=== PATIENT | female | born 1955 | race Caucasian/White ===

== ENCOUNTER → 2017-08-20 | Outpatient (CLI) | payer BC ==
[2017-08-20 12:47] LABS: MEAN CORPUSCULAR HEMOGLOBIN 31.1 pg (27.0-33.0); MEAN CORPUSCULAR HGB CONC 32.7 g/dl (32.0-36.5); MEAN CORPUSCULAR VOLUME 95.2 fl (80.0-96.0); PLATELET COUNT, AUTOMATED 283 10^3/uL (150-450); RED CELL DISTRIBUTION WIDTH 13.2 % (11.5-14.5)
[2017-08-20 13:14] LABS: VITAMIN B12 LEVEL 281 PG/ML (247-911)
[2017-08-20 13:29] LABS: ALBUMIN 3.8 GM/DL (3.2-5.2); ALBUMIN/GLOBULIN RATIO 1.12 (1.00-1.93); ALKALINE PHOSPHATASE 69 U/L (45-117); ALT/SGPT 22 U/L (12-78); ANION GAP 6 MEQ/L (8-16); AST/SGOT 16 U/L (15-37); BILIRUBIN,TOTAL 0.4 MG/DL (0.2-1.0); BLOOD UREA NITROGEN 11 MG/DL (7-18); CALCIUM LEVEL 8.7 MG/DL (8.8-10.2); CARBON DIOXIDE LEVEL 29 MEQ/L (21-32); CHLORIDE LEVEL 104 MEQ/L (98-107); CREATININE FOR GFR 0.67 MG/DL (0.55-1.02); FERRITIN 38 NG/ML (8-252); GLOMERULAR FILTRATION RATE > 60.0 (>45); GLUCOSE, FASTING 87 MG/DL (80-110); MAGNESIUM LEVEL 2.4 MG/DL (1.8-2.4); PERCENT SATURATION 16.7 % (13.2-45.0); POTASSIUM SERUM 4.5 MEQ/L (3.5-5.1); SODIUM LEVEL 139 MEQ/L (136-145); TOTAL IRON BINDING CAPACITY 293 UG/DL (250-450); TOTAL PROTEIN 7.2 GM/DL (6.4-8.2)
== END ==
LOC: M LAB 11:58
PROVIDERS: ATTEND Internal Medicine Gastroenterology
DX: K44.9 Diaphragmatic hernia without obstruction or gangrene (principal)

== ENCOUNTER → 2017-11-14 | Outpatient (CLI) | payer BC ==
[2017-11-14 15:00] LABS: HEMATOCRIT 37.9 % (36.0-47.0); HEMOGLOBIN 12.5 g/dl (12.0-16.0); MEAN CORPUSCULAR HEMOGLOBIN 31.6 pg (27.0-33.0); MEAN CORPUSCULAR VOLUME 95.9 fl (80.0-96.0); PLATELET COUNT, AUTOMATED 247 10^3/uL (150-450); RED BLOOD COUNT 3.95 10^6/uL (4.00-5.40); RED CELL DISTRIBUTION WIDTH 14.2 % (11.5-14.5); WHITE BLOOD COUNT 3.9 10^3/uL (4.0-10.0)
[2017-11-14 15:32] LABS: ALBUMIN 4.2 GM/DL (3.2-5.2); ALBUMIN/GLOBULIN RATIO 1.17 (1.00-1.93); ALKALINE PHOSPHATASE 58 U/L (45-117); ALT/SGPT 15 U/L (12-78); ANION GAP 5 MEQ/L (8-16); AST/SGOT 12 U/L (7-37); BILIRUBIN,TOTAL 0.4 MG/DL (0.2-1.0); BLOOD UREA NITROGEN 16 MG/DL (7-18); C REACTIVE PROTEIN QUANTITATIV < 0.30 MG/DL (0.00-0.30); CALCIUM LEVEL 9.2 MG/DL (8.8-10.2); CARBON DIOXIDE LEVEL 30 MEQ/L (21-32); CHLORIDE LEVEL 103 MEQ/L (98-107); CREATININE FOR GFR 0.85 MG/DL (0.55-1.02); GLOMERULAR FILTRATION RATE > 60.0 (>45); GLUCOSE, FASTING 108 MG/DL (80-110); POTASSIUM SERUM 4.5 MEQ/L (3.5-5.1); SODIUM LEVEL 138 MEQ/L (136-145); TOTAL PROTEIN 7.8 GM/DL (6.4-8.2)
== END ==
LOC: M LAB 14:36
DX: K51.90 Ulcerative colitis, unspecified, without complications (principal)
CPT/HCPCS: 80053

== ENCOUNTER → 2017-12-13 | Outpatient (CLI) | payer BC ==
[2017-12-13 14:51] LABS: HEMOGLOBIN 12.6 g/dl (12.0-16.0); MEAN CORPUSCULAR HEMOGLOBIN 32.1 pg (27.0-33.0); MEAN CORPUSCULAR HGB CONC 33.2 g/dl (32.0-36.5); MEAN CORPUSCULAR VOLUME 96.7 fl (80.0-96.0); PLATELET COUNT, AUTOMATED 286 10^3/uL (150-450); RED BLOOD COUNT 3.93 10^6/uL (4.00-5.40); RED CELL DISTRIBUTION WIDTH 15.8 % (11.5-14.5); WHITE BLOOD COUNT 3.5 10^3/uL (4.0-10.0)
[2017-12-13 15:28] LABS: ALBUMIN 4.5 GM/DL (3.2-5.2); ALBUMIN/GLOBULIN RATIO 1.29 (1.00-1.93); ALKALINE PHOSPHATASE 70 U/L (45-117); ALT/SGPT 17 U/L (12-78); ANION GAP 7 MEQ/L (8-16); AST/SGOT 18 U/L (7-37); BILIRUBIN,TOTAL 0.5 MG/DL (0.2-1.0); BLOOD UREA NITROGEN 15 MG/DL (7-18); C REACTIVE PROTEIN QUANTITATIV < 0.30 MG/DL (0.00-0.30); CALCIUM LEVEL 9.2 MG/DL (8.8-10.2); CARBON DIOXIDE LEVEL 28 MEQ/L (21-32); CHLORIDE LEVEL 103 MEQ/L (98-107); CREATININE FOR GFR 0.68 MG/DL (0.55-1.30); GLOMERULAR FILTRATION RATE > 60.0 (>45); GLUCOSE, FASTING 87 MG/DL (70-100); MAGNESIUM LEVEL 2.5 MG/DL (1.8-2.4); POTASSIUM SERUM 4.2 MEQ/L (3.5-5.1); SODIUM LEVEL 138 MEQ/L (136-145)
[2017-12-13 15:29] LABS: TOTAL 25(OH) VITAMIN D 42.7 NG/ML (30.0-100.0)
[2017-12-17 00:06] LABS: ALDOLASE 6.1 U/L (3.3-10.3)
== END ==
LOC: M LAB 13:47
DX: K51.913 Ulcerative colitis, unspecified with fistula (principal); R53.83 Other fatigue

== ENCOUNTER → 2018-01-21 | Outpatient (CLI) | payer BC ==
[2018-01-21 10:45] LABS: HEMATOCRIT 37.6 % (36.0-47.0); HEMOGLOBIN 12.3 g/dl (12.0-16.0); MEAN CORPUSCULAR HEMOGLOBIN 32.1 pg (27.0-33.0); MEAN CORPUSCULAR HGB CONC 32.7 g/dl (32.0-36.5); MEAN CORPUSCULAR VOLUME 98.2 fl (80.0-96.0); PLATELET COUNT, AUTOMATED 188 10^3/uL (150-450); RED BLOOD COUNT 3.83 10^6/uL (4.00-5.40); RED CELL DISTRIBUTION WIDTH 14.6 % (11.5-14.5); WHITE BLOOD COUNT 4.4 10^3/uL (4.0-10.0)
[2018-01-21 10:59] LABS: RHEUMATOID FACTOR QUANT < 10.0 IU/ML (<15.0)
[2018-01-21 10:59] LABS: C REACTIVE PROTEIN QUANTITATIV < 0.30 MG/DL (0.00-0.30)
[2018-01-22 14:14] LABS: ANTINUCLEAR ANTIBODIES DIRECT Negative (Negative)
== END ==
LOC: M LAB 10:04
DX: K91.850 Pouchitis (principal); K51.913 Ulcerative colitis, unspecified with fistula; R19.7 Diarrhea, unspecified; K44.9 Diaphragmatic hernia without obstruction or gangrene; R53.83 Other fatigue; M13.0 Polyarthritis, unspecified
CPT/HCPCS: 86140

== ENCOUNTER 2018-06-03 06:17 | Day surgery (SDC) | payer BC ==
[~2018-06-03 06:17] MED LIST: LR 1,000 ML IV
[2018-06-03] MEDS ORDERED: MIDAZOLAM INJ 2 MG/2 ML VIAL (J2250) As Ordered (07:16)
[2018-06-03] MEDS ORDERED: LIDOCAINE 2% INJ 100 MG/5 ML SDV (FOR ANES.) As Ordered (07:16)
[2018-06-03] MEDS ORDERED: fentaNYL 250 MCG/5 ML INJECTION (J3010) As Ordered (07:16)
[2018-06-03] MEDS ORDERED: PROPOFOL 200 MG/20 ML VIAL As Ordered (07:16)
[2018-06-03] MEDS: ceFAZolin SOD 1 GM in D5W MINI-BAG PLUS 50 ML IV (07:27)
[2018-06-03] MEDS ORDERED: ROCURONIUM BROMIDE 50 MG/5 ML VIAL As Ordered (07:28)
[2018-06-03] MEDS ORDERED: dexameTHASONE 4 MG/ML 1ML VIAL (J1100) As Ordered ×2 (07:54)
[2018-06-03] MEDS ORDERED: GLYCOPYRROLATE INJ 0.2 MG/ML 2 ML VIAL As Ordered (07:54)
[2018-06-03] MEDS ORDERED: ONDANSETRON 4MG/2ML VIAL (J2405) As Ordered (07:54)
[2018-06-03] MEDS ORDERED: NEOSTIGMINE 10 MG/10 ML VIAL (J2710) As Ordered (07:54)
[2018-06-03] MEDS ORDERED: KETOROLAC 60 MG/2 ML VIAL (J1885) As Ordered (07:54)
[2018-06-03] MEDS: BUPIVACAINE/EPIN 0.25% 30 ML VIAL As Ordered (08:27)
[2018-06-03] MEDS ORDERED: ONDANSETRON 4MG/2ML VIAL (J2405) IV ×2 (09:00)
[2018-06-03] MEDS ORDERED: NORCO, ANEXSIA 5/325MG TABLET (HYDROcodone/ACETAMINOPHEN) PO (09:00)
[2018-06-03] MEDS ORDERED: LR 1,000 ML IV ×2 (09:00)
[2018-06-03] MEDS ORDERED: HYDROMORPHONE HCL 0.5 MG/ 0.5 ML SYRINGE (J1170 PER 1) IV (09:00)
[2018-06-03] MEDS: PERCOCET 5MG/325MG TAB PO ×2 (09:00→09:29)
[2018-06-03] MEDS ORDERED: MORPHINE 4 MG/ML 1ML VIAL/SYRINGE (J2270) IV (09:00)
[2018-06-03] MEDS ORDERED: fentaNYL 100 MCG/2 ML INJECTION (J3010) IV (09:00)
== END 2018-06-03 10:38 | disposition home or self-care (01) ==
LOC: M SDC 06:17
DX: K40.90 Unilateral inguinal hernia, without obstruction or gangrene, not specified as recurrent (principal); K44.9 Diaphragmatic hernia without obstruction or gangrene; Z79.899 Other long term (current) drug therapy; F41.9 Anxiety disorder, unspecified
CPT/HCPCS: 49505

== ENCOUNTER → 2019-03-12 | Outpatient (CLI) | payer BC ==
[~2019-03-12] MED LIST changes: +CITA20TA6 PO; +HUMI40KI2 SUBQ; -LR 1,000 ML IV
[2019-03-12 16:27] LABS: FERRITIN 31 NG/ML (8-252); IRON (FE) 86 UG/DL (50-170); PERCENT SATURATION 30.4 % (13.2-45.0); TOTAL IRON BINDING CAPACITY 283 UG/DL (250-450)
[2019-03-13 09:17] LABS: HEPATITIS B SURFACE ANTIGEN NEGATIVE (NEGATIVE)
== END ==
LOC: M LAB 14:39
PROVIDERS: ATTEND Internal Medicine Gastroenterology
DX: R10.84 Generalized abdominal pain (principal); K91.850 Pouchitis; K52.9 Noninfective gastroenteritis and colitis, unspecified

== ENCOUNTER → 2019-04-14 | Outpatient (CLI) | payer BC ==
--- NOTE | 2019-04-14 15:40 | REP ---
PA and lateral chest: Comparison is 11/28/2009. There are no infiltrates. No pleural effusions. There are no masses. There are stable calcified granulomas in the right hilus and perihilar area, unchanged. The left hilus is unremarkable. Cardiac size is normal. Mediastinum and skeletal structures are unremarkable. Impression: Chronic stable calcified granulomas in the left hilus and perihilar areas. No masses or nodules. Otherwise, negative PA and lateral chest. Electronically Signed by Sundar Rivera MD 04/14/2019 03:32 P
== END ==
LOC: M RAD 14:17
PROVIDERS: ATTEND Internal Medicine Gastroenterology
DX: R91.8 Other nonspecific abnormal finding of lung field (principal); K51.913 Ulcerative colitis, unspecified with fistula; K44.9 Diaphragmatic hernia without obstruction or gangrene; R10.13 Epigastric pain; K21.9 Gastro-esophageal reflux disease without esophagitis; R05 Cough

== ENCOUNTER → 2019-07-14 | Outpatient (CLI) | payer BC ==
[2019-07-14 11:27] LABS: HEMATOCRIT 39.2 % (36.0-47.0); HEMOGLOBIN 12.6 g/dl (12.0-15.5); MEAN CORPUSCULAR HEMOGLOBIN 31.9 pg (27.0-33.0); MEAN CORPUSCULAR HGB CONC 32.1 g/dl (32.0-36.5); MEAN CORPUSCULAR VOLUME 99.2 fl (80.0-96.0); PLATELET COUNT, AUTOMATED 234 10^3/uL (150-450); RED BLOOD COUNT 3.95 10^6/uL (4.00-5.40); WHITE BLOOD COUNT 4.5 10^3/uL (4.0-10.0)
[2019-07-14 12:01] LABS: ALBUMIN 4.2 GM/DL (3.2-5.2); ALT/SGPT 20 U/L (12-78); BILIRUBIN,TOTAL 0.4 MG/DL (0.2-1.0); BLOOD UREA NITROGEN 12 MG/DL (7-18); C REACTIVE PROTEIN QUANTITATIV < 0.30 MG/DL (0.00-0.30); CALCIUM LEVEL 9.3 MG/DL (8.8-10.2); CARBON DIOXIDE LEVEL 28 MEQ/L (21-32); CHLORIDE LEVEL 107 MEQ/L (98-107); CREATININE FOR GFR 0.73 MG/DL (0.55-1.30); GLOMERULAR FILTRATION RATE > 60.0 (>45); GLUCOSE, FASTING 101 MG/DL (70-100); POTASSIUM SERUM 4.2 MEQ/L (3.5-5.1); SODIUM LEVEL 141 MEQ/L (136-145); TOTAL PROTEIN 7.4 GM/DL (6.4-8.2)
[2019-07-14 12:09] LABS: TOTAL 25(OH) VITAMIN D 32.6 NG/ML (30.0-100.0); VITAMIN B12 LEVEL 279 PG/ML (247-911)
== END ==
LOC: M LAB 10:58
PROVIDERS: ATTEND Internal Medicine Gastroenterology
DX: K51.90 Ulcerative colitis, unspecified, without complications (principal); R10.84 Generalized abdominal pain; K91.850 Pouchitis; R19.7 Diarrhea, unspecified

== ENCOUNTER → 2019-08-12 | Outpatient (CLI) | payer BC ==
--- NOTE | 2019-08-13 00:26 | REP ---
Clinical: Abdominal pain. Hematochezia. Technique: Single supine view of the abdomen and pelvis. Findings: Bowel gas pattern is nonspecific. No organomegaly. No abnormal calcifications. Skeletal structures are intact and within normal limits for age. Impression: Nonspecific abdominal radiograph. Electronically Signed by Javon Angel MD 08/13/2019 12:17 A
== END ==
LOC: M RAD 13:15
PROVIDERS: ATTEND Internal Medicine Gastroenterology
DX: R10.31 Right lower quadrant pain (principal); K91.850 Pouchitis; K92.1 Melena

== ENCOUNTER → 2019-08-13 | Outpatient (CLI) | payer BC ==
[2019-08-13 13:39] LABS: HEMATOCRIT 38.8 % (36.0-47.0); HEMOGLOBIN 12.4 g/dl (12.0-15.5); MEAN CORPUSCULAR HEMOGLOBIN 32.5 pg (27.0-33.0); MEAN CORPUSCULAR VOLUME 101.6 fl (80.0-96.0); PLATELET COUNT, AUTOMATED 201 10^3/uL (150-450); RED BLOOD COUNT 3.82 10^6/uL (4.00-5.40); WHITE BLOOD COUNT 3.8 10^3/uL (4.0-10.0)
[2019-08-13 13:57] LABS: ALBUMIN 4.2 GM/DL (3.2-5.2); ALT/SGPT 21 U/L (12-78); BILIRUBIN,TOTAL 0.5 MG/DL (0.2-1.0); BLOOD UREA NITROGEN 17 MG/DL (7-18); C REACTIVE PROTEIN QUANTITATIV < 0.30 MG/DL (0.00-0.30); CALCIUM LEVEL 9.2 MG/DL (8.8-10.2); CARBON DIOXIDE LEVEL 28 MEQ/L (21-32); CHLORIDE LEVEL 105 MEQ/L (98-107); CREATININE FOR GFR 0.79 MG/DL (0.55-1.30); GLOMERULAR FILTRATION RATE > 60.0 (>45); GLUCOSE, FASTING 99 MG/DL (70-100); POTASSIUM SERUM 4.2 MEQ/L (3.5-5.1); SODIUM LEVEL 139 MEQ/L (136-145); TOTAL PROTEIN 7.6 GM/DL (6.4-8.2)
== END ==
LOC: M LAB 12:38
PROVIDERS: ATTEND Internal Medicine Gastroenterology
DX: R10.31 Right lower quadrant pain (principal); K91.850 Pouchitis; K92.1 Melena

== ENCOUNTER → 2020-07-05 | Outpatient (CLI) | payer BC ==
[~2020-07-05] MED LIST changes: +ACET-907 PO; +BUDE3CAP; +BUDE3CAP PO; +COLE625T PO; +COLE625TAB PO; +HUMI40KI SC; +HYDR-4571; +OMEP-218 PO; +SULF1TAB30 PO; +SULF500T2 PO; +TRAM50TA2; +TRAM50TA2 PO; +VITACHTA PO
--- NOTE | 2020-07-25 11:59 | REP ---
BILATERAL SCREENING MAMMOGRAM WITH 3D TOMOSYNTHESIS HISTORY: Family history of breast cancer at age 32 in daughter. [facility] lifetime risk of breast cancer 6.8%. TECHNIQUE: Bilateral mammography performed in the MLO and CC projections. 3D tomosynthesis was performed. COMPARISON: Made with prior studies 07/09/2012 and 03/21/2006. FINDINGS: Moderate fibroglandular density is seen bilaterally. Volpara breast density C. There is a round smoothly marginated nodule in the retroareolar region at 6 o'clock near the nipple. No other mass or nodule is seen bilaterally. No suspicious clusters of microcalcifications are seen. There are normal appearing lymph nodes in both axillary regions. IMPRESSION: ACR 0 incomplete. In the right retroareolar region just below the level of the nipple, there is a smoothly margined 8-mm nodule. This is not seen on prior studies. Recommend spot compression views and ultrasound to further evaluate. ACR 0 incomplete. This mammogram was interpreted with the aid of an FDA approved computer-aided detection system. The patient states her last clinical breast exam was over one year ago. Patient letter 0. MTDD
== END ==
LOC: M WHC 08:24
PROVIDERS: ATTEND Internal Medicine
DX: Z12.31 Encounter for screening mammogram for malignant neoplasm of breast (principal)

== ENCOUNTER → 2020-07-05 | Outpatient (CLI) | payer BC | LOC: M EKG 09:13 | PROVIDERS: ATTEND Anesthesiology | DX: Z01.818 Encounter for other preprocedural examination (principal) ==

== ENCOUNTER → 2020-07-05 | Outpatient (CLI) | payer BC ==
--- NOTE | 2020-08-08 11:57 | ECGEPIP ---
[facility] Test Date: 2020-07-05 Pat Name: ARLENE MEDINA Department: Room: - Gender: Female [employer]: [place] : 1955 Requested By: Chris Lubin Order Number: [id number] Reading MD: Saad Hernandez Measurements Intervals [place] Rate: 57 P: 62 IN: 202 QRS: 40 QRSD: 102 T: 56 QT: 438 QTc: 427 Interpretive Statements SINUS BRADYCARDIA LEFT ATRIAL ENLARGEMENT. FIRST DEGREE AV BLOCK LOW VOLTAGE IN COMPLEXES RBBB, AND SLOW R WAVE PROGRESSION-BODYHABITUS VS COPD SEE SCANNED DOWNTIME REPORT.
== END ==
LOC: M EKG 09:11
PROVIDERS: ATTEND Anesthesiology
DX: Z01.818 Encounter for other preprocedural examination (principal)

== ENCOUNTER → 2020-07-07 | Outpatient (CLI) | payer BC | LOC: M LABSMTC 09:22 | PROVIDERS: ATTEND Anesthesiology | DX: Z01.812 Encounter for preprocedural laboratory examination (principal); Z20.828 Contact with and (suspected) exposure to other viral communicable diseases | CPT/HCPCS: C9803; U0003 ==

== ENCOUNTER 2020-07-12 06:05 | Day surgery (SDC) | payer BC ==
[~2020-07-12] VITALS: Ht 165.1 cm; Wt 61.2 kg
[~2020-07-12 06:05] MED LIST changes: -ACET-907 PO; -BUDE3CAP; -BUDE3CAP PO; -COLE625TAB PO; -HUMI40KI SC; -HYDR-4571; +LIDOCAINE 1% MDV 20ML VIAL SQ PRN; -SULF1TAB30 PO; -TRAM50TA2; -TRAM50TA2 PO; -VITACHTA PO
[2020-07-12] MEDS ORDERED: ceFAZolin 1GM VIAL (J0690 PER 500MG) As Ordered ONE (06:33)
[2020-07-12] MEDS ORDERED: LR 1,000 ML IV ONE (07:00)
[2020-07-12] MEDS ORDERED: ceFAZolin SOD 2 GM in IV 1 EA IV ONE (07:00)
[2020-07-12] MEDS ORDERED: dexameTHASONE 4 MG/ML 1ML VIAL (J1100 PER 1MG) As Ordered ONE (07:03)
[2020-07-12] MEDS ORDERED: propofoL 200 MG/20 ML VIAL As Ordered ONE (07:03)
[2020-07-12] MEDS ORDERED: ROCURONIUM BROMIDE 50 MG/5 ML VIAL As Ordered ONE ×2 (07:03→08:49)
[2020-07-12] MEDS ORDERED: ACETAMINOPHEN 1000MG 100ML IV BTL (OFIRMEV) (J0131 PER 10MG) As Ordered ONE (07:03)
[2020-07-12] MEDS ORDERED: LIDOCAINE PRES-FREE 2% 10ML AMP As Ordered ONE (07:03)
[2020-07-12] MEDS ORDERED: SUGAMMADEX SODIUM 500 MG/5 ML VIAL (BRIDION) As Ordered ONE (07:03)
[2020-07-12] MEDS ORDERED: ONDANSETRON 4MG/2ML VIAL As Ordered ONE (07:03)
[2020-07-12] MEDS ORDERED: fentaNYL 100 MCG/2 ML INJECTION (J3010) As Ordered ONE ×2 (07:04→08:11)
[2020-07-12] MEDS ORDERED: MIDAZOLAM INJ 2MG/2ML VIAL (J2250 PER 1MG) As Ordered ONE (07:04)
[2020-07-12] MEDS ORDERED: BUPIVACAINE LIPOSOME/PF 1.3% 20ML VIAL (13.3MG/ML)(EXPAREL)(C9290 PER1MG) As Ordered ONE (07:13)
[2020-07-12] MEDS ORDERED: BUPIVACAINE/EPIN 0.25% 30 ML VIAL As Ordered ONE (07:13)
[2020-07-12] MEDS ORDERED: BUPIVACAINE HCL 0.25% 10ML VIAL As Ordered ONE (07:13)
[2020-07-12] MEDS ORDERED: KETOROLAC 60MG 2ML VIAL As Ordered ONE (07:49)
[2020-07-12] MEDS ORDERED: ePHEDrine SULFATE 25 MG/5 ML(5MG/ML) SYRINGE As Ordered ONE (07:59)
[2020-07-12] MEDS ORDERED: GLYCOPYRROLATE INJ 0.2 MG/ML 2 ML VIAL As Ordered ONE (08:00)
[2020-07-12] MEDS ORDERED: NORCO, ANEXSIA 5/325MG TABLET (HYDROcodone/ACETAMINOPHEN) PO PRN (10:30)
[2020-07-12] MEDS ORDERED: LR 1,000 ML IV SCH ×2 (10:30)
[2020-07-12] MEDS ORDERED: fentaNYL 100 MCG/2 ML INJECTION (J3010) IV PRN (10:30)
[2020-07-12] MEDS ORDERED: METOCLOPRAMIDE INJ 10MG/2ML VIAL (J2765 PER 1) IV PRN (10:30)
[2020-07-12] MEDS ORDERED: ONDANSETRON 4MG/2ML VIAL IV PRN (10:30)
[2020-07-12] MEDS ORDERED: PERCOCET 5MG/325MG TAB PO PRN (10:30)
[2020-07-12 11:40] VITALS: BP 114/58
[2020-07-13] MEDS ORDERED: TRAM50TA2 (19:08)
[2020-07-13] MEDS ORDERED: BUDE3CAP (19:08)
[2020-07-13] MEDS ORDERED: HYDR-4571 (19:08)
[2020-07-13] MEDS ORDERED: SULF1TAB30 PO (23:07)
[2020-07-13] MEDS ORDERED: VITACHTA PO (23:07)
[2020-07-13] MEDS ORDERED: TRAM50TA2 PO (23:07)
[2020-07-13] MEDS ORDERED: ACET-907 PO (23:07)
[2020-07-13] MEDS ORDERED: HUMI40KI SC (23:07)
[2020-07-13] MEDS ORDERED: COLE625TAB PO (23:07)
[2020-07-13] MEDS ORDERED: BUDE3CAP PO (23:07)
--- NOTE | 2020-07-14 19:09 | RO ---
DATE OF OPERATION: 07/12/2020 PREOPERATIVE DIAGNOSIS: Incisional hernia. POSTOPERATIVE DIAGNOSIS: Incisional hernia. PROCEDURE: Robotic-assisted laparoscopic incisional hernia repair with Parietex mesh 10 x 12 cm. ANESTHESIA: General endotracheal anesthesia. EBL: Minimal. FLUIDS: Crystalloid. SURGEON: Roly Barrera MD DIRECTOR RADIO: Vania Villalpando (provided instrument exchange, trocar placement, trocar closure and mesh placement). BRIEF OPERATIVE SUMMARY: The patient was brought to the operating room, was given general anesthesia. After adequate anesthesia and preoperative antibiotics were given, the patient was prepped and draped in usual sterile fashion. A left upper quadrant/left subcostal incision was made with skin knife and Veress needle placed into the abdominal cavity and insufflated to 15 mm pressure. A dilating 8 mm trocar was placed at this time and two additional ports were placed under direct visualization. There were numerous adhesions very close to the trocars and these were taken down by laparoscopic scissors and then once adequate room was provided the robot was docked and the rest of the adhesions were taken down with monopolar cut scissors. The fascial defect was at the previous ostomy site just off midline. The patient was a very thin small individual and off midline it probably was 2 cm at most where the fascial defect was. It ran somewhat longitudinal in this area and this was closed with #0 Stratafix bringing the edges down quite nicely. However, there was significant diastasis that seemed to extend all the way down to the right suprapubic area. More superficial bites were taken in this area just to help elevate the diastasis in this area and bring this together. In any case, a 10 x 15 Parietex mesh then was cut to the appropriate size making it approximately 10 x 12 cm mesh and placed into the abdominal cavity. Stay suture was brought up through the previous hernia site and circumferentially running 2-0 V-Loc suture was used to approximate the area. At the beginning of the case there was some minimal blood in the left upper quadrant and it could be seen that the Veress needle made a small puncture in the liver. No active bleeding was appreciated and at the end this was re-evaluated and revealed no active bleeding. In any case, at this time the trocars were removed under direct visualization. All incisions were closed with 4-0 Vicryl. Steri-Strips and dry, sterile dressing were applied. The patient was awakened, extubated and brought to the recovery room awake, alert and hemodynamically stable. Sponge and needle counts correct x2. MTDD
== END 2020-07-12 13:52 | disposition home or self-care (01) ==
LOC: M SDC 06:05
PROVIDERS: ATTEND Surgery
DX: K43.2 Incisional hernia without obstruction or gangrene (principal); K44.9 Diaphragmatic hernia without obstruction or gangrene; K21.9 Gastro-esophageal reflux disease without esophagitis; R06.83 Snoring; M12.9 Arthropathy, unspecified; Z79.899 Other long term (current) drug therapy; Z87.891 Personal history of nicotine dependence; Z91.048 Other nonmedicinal substance allergy status
CPT/HCPCS: 49654; C1781; C9290; J0131; J0690; J1100; J1885; J2250; J2405; J3010

== ENCOUNTER 2020-07-13 18:55 | Inpatient (IN) | payer BC ==
[~2020-07-13] VITALS: Ht 165.1 cm; Wt 63.6 kg
[~2020-07-13 18:55] MED LIST changes: -LIDOCAINE 1% MDV 20ML VIAL SQ PRN
[2020-07-13] MEDS ORDERED: BUDE3CAP (19:08)
[2020-07-13] MEDS ORDERED: HYDR-4571 (19:08)
[2020-07-13] MEDS ORDERED: TRAM50TA2 (19:08)
[2020-07-13] MEDS ORDERED: NS 1,000 ML IV ONE (20:15)
[2020-07-13 20:22] LABS: BASO % 0.3 % (0.0-1.0); EOS # 0.1 10^3/uL (0.0-0.5); EOS % 1.9 % (0.0-3.0); HEMATOCRIT 38.8 % (36.0-47.0); HEMOGLOBIN 12.6 g/dl (12.0-15.5); LYMPH # 1.4 10^3/uL (1.5-5.0); LYMPH % 21.3 % (24.0-44.0); MEAN CORPUSCULAR HEMOGLOBIN 33.9 pg (27.0-33.0); MEAN CORPUSCULAR HGB CONC 32.5 g/dl (32.0-36.5); MEAN CORPUSCULAR VOLUME 104.3 fl (80.0-96.0); MONO # 0.6 10^3/uL (0.0-0.8); MONO % 9.1 % (0.0-5.0); NEUTROPHILS # 4.3 10^3/uL (1.5-8.5); NEUTROPHILS % 67.2 % (36.0-66.0); PLATELET COUNT, AUTOMATED 181 10^3/uL (150-450); RED BLOOD COUNT 3.72 10^6/uL (4.00-5.40); WHITE BLOOD COUNT 6.4 10^3/uL (4.0-10.0)
[2020-07-13] MEDS ORDERED: ONDANSETRON 4MG/2ML VIAL IV ONE (20:45)
[2020-07-13] MEDS ORDERED: KETOROLAC 30 MG/ML 1ML VIAL IV ONE (20:45)
[2020-07-13 20:49] LABS: ALBUMIN 3.9 GM/DL (3.2-5.2); ALT/SGPT 25 U/L (12-78); BILIRUBIN,DIRECT 0.2 MG/DL (0.0-0.2); BILIRUBIN,TOTAL 0.6 MG/DL (0.2-1.0); BLOOD UREA NITROGEN 9 MG/DL (7-18); CARBON DIOXIDE LEVEL 30 MEQ/L (21-32); CHLORIDE LEVEL 107 MEQ/L (98-107); CREATININE FOR GFR 0.81 MG/DL (0.55-1.30); GLOMERULAR FILTRATION RATE > 60.0 (>45); GLUCOSE, FASTING 111 MG/DL (70-100); LIPASE 212 U/L (73-393); POTASSIUM SERUM 3.9 MEQ/L (3.5-5.1); SODIUM LEVEL 142 MEQ/L (136-145)
[2020-07-13] MEDS ORDERED: ISOVUE-370 76% 100ML VIAL As Ordered ONE (21:40)
--- NOTE | 2020-07-13 22:16 | REPVR ---
PROCEDURE INFORMATION: Exam: CT Abdomen And Pelvis With Contrast Exam date and time: 07/13/2020 9:53 PM Age: 65 years old Clinical indication: Abdominal pain; Additional info: Rlq/diffuse abd pain S/P hernia repair 07/12 TECHNIQUE: Imaging protocol: Computed tomography of the abdomen and pelvis with intravenous contrast. Radiation optimization: All CT scans at this facility use at least one of these dose optimization techniques: automated exposure control; mA and/or kV adjustment per patient size (includes targeted exams where dose is matched to clinical indication); or iterative reconstruction. Contrast material: ISOVUE 370; Contrast volume: 100 ml; Contrast route: INTRAVENOUS (IV); COMPARISON: CT ABD PELVIS W/O FOL BY WIT 04/16/2016 11:32 AM FINDINGS: Lungs: Atelectasis is present at the lung bases. Heart: Multi-chamber cardiac dilatation is noted. No evidence of acute pulmonary edema. Liver: Liver demonstrates no focal deformity. Miniscule volume of perihepatic fluid. Gallbladder and bile ducts: Gallbladder is present and shows no evidence of gallstone. Pancreas: Pancreas appears normal. No focal mass or peripancreatic inflammation. Spleen: Spleen is unremarkable aside from benign granulomatous calcifications. Adrenals: Adrenal glands are normal in appearance. Kidneys and ureters: Kidneys appear normal, with no stone, solid mass or hydronephrosis. Stomach and bowel: Stomach is distended and multiple small bowel loops are fluid-filled and distended measuring up to nearly 4 cm. Multiple bowel surgical anastomoses are present. No identifiable free air. Air is present within the rectus muscles and anterior abdominal wall with areas of probable scarring. Colon is dilated and distal colonic anastomoses are also present. Distal rectosigmoid anastomosis is present with similar appearance compared to the prior exam. Appendix: Appendix is not visualized. Intraperitoneal space: See "Stomach and bowel" finding. Vasculature: Aorta is tortuous with atherosclerotic change. No dissection or focal aneurysm. No high-grade narrowing of the major aortic branch vessel origins. Main portal and splenic veins enhance normally. Lymph nodes: . No enlarged lymph nodes. Bladder: Urinary bladder appears normal. Bones/joints: Bony structures are normal except for lumbar spine degenerative disc changes. IMPRESSION: 1. Multiple dilated small bowel loops and gastric distension, suggesting small bowel obstruction with adjacent mesenteric edema but no wall thickening to suggest small bowel ischemia. No evidence of perforation. This could be early adhesion related given the recent surgical change. 2. No evidence of recurrent hernia or bowel entrapment within hernia Electronically signed by: Caden Mills On 07/13/2020 22:16:40 PM
[2020-07-13] MEDS ORDERED: PILL CUTTER 1 EACH XX PRN (22:45)
[2020-07-13] MEDS ORDERED: ONDANSETRON 4MG/2ML VIAL IV PRN (22:45)
[2020-07-13] MEDS ORDERED: ACETAMINOPHEN 500 MG TAB PO PRN (22:45)
[2020-07-13] MEDS ORDERED: GLUCOSE 4GM CHEW TABLET PO PRN (23:00)
[2020-07-13] MEDS ORDERED: GLUCAGON INJ 1MG VIAL SC PRN (23:00)
[2020-07-13] MEDS ORDERED: DEXTROSE 50% 50 ML SYRINGE IV PRN (23:00)
[2020-07-13] MEDS: NS 1,000 ML IV SCH (23:00)
[2020-07-13] MEDS ORDERED: VITACHTA PO (23:07)
[2020-07-13] MEDS ORDERED: ACET-907 PO (23:07)
[2020-07-13] MEDS ORDERED: HUMI40KI SC (23:07)
[2020-07-13] MEDS ORDERED: SULF1TAB30 PO (23:07)
[2020-07-13] MEDS ORDERED: TRAM50TA2 PO (23:07)
[2020-07-13] MEDS ORDERED: BUDE3CAP PO (23:07)
[2020-07-13] MEDS ORDERED: COLE625TAB PO (23:07)
[2020-07-13] MEDS: MORPHINE 2 MG/ML 1ML VIAL (J2270) IV PRN (23:49)
[2020-07-14 01:10] VITALS: BP 173/87
[2020-07-14] MEDS: KETOROLAC 30 MG/ML 1ML VIAL IV PRN ×2 (01:20→12:18)
[2020-07-14] MEDS: HumaLOG INSULIN (NovoLOG) PER UNIT SC SCH ×4 (01:40→17:54)
[2020-07-14] MEDS: SIMETHICONE 80 MG CHEW TAB PO SCH ×5 (01:43→23:20)
[2020-07-14] MEDS: MORPHINE 2 MG/ML 1ML VIAL (J2270) IV PRN ×3 (04:07→11:02)
[2020-07-14 06:00] VITALS: BP 142/74
[2020-07-14 07:07] LABS: HEMOGLOBIN 12.2 g/dl (12.0-15.5); MEAN CORPUSCULAR HEMOGLOBIN 33.9 pg (27.0-33.0); MEAN CORPUSCULAR HGB CONC 32.1 g/dl (32.0-36.5); MEAN CORPUSCULAR VOLUME 105.6 fl (80.0-96.0); PLATELET COUNT, AUTOMATED 179 10^3/uL (150-450); WHITE BLOOD COUNT 5.9 10^3/uL (4.0-10.0)
[2020-07-14] MEDS: NS 1,000 ML IV SCH ×3 (07:08→23:19)
[2020-07-14 07:26] LABS: BLOOD UREA NITROGEN 8 MG/DL (7-18); CALCIUM LEVEL 8.3 MG/DL (8.8-10.2); CARBON DIOXIDE LEVEL 30 MEQ/L (21-32); CHLORIDE LEVEL 107 MEQ/L (98-107); CREATININE FOR GFR 0.61 MG/DL (0.55-1.30); GLOMERULAR FILTRATION RATE > 60.0 (>45); GLUCOSE, FASTING 93 MG/DL (70-100); POTASSIUM SERUM 3.7 MEQ/L (3.5-5.1); SODIUM LEVEL 140 MEQ/L (136-145)
[2020-07-14] MEDS ORDERED: PREVNAR 13 VACCINE SYRINGE IM ONE (09:00)
[2020-07-14] MEDS ORDERED: FLUBLOK(EGG FREE)(QUAD)INFLUENZA VACC 0.5ML SYRINGE 18YRS & OLDER IM ONE (09:00)
[2020-07-14] MEDS: ALVIMOPAN 12 MG CAPSULE (ENTEREG) PO SCH ×2 (09:16→20:14)
[2020-07-14] MEDS: PANTOPRAZOLE 40MG VIAL (C9113 PER 1) IV SCH (09:18)
[2020-07-14 10:00] VITALS: BP 140/73
[2020-07-14 14:00] VITALS: BP 142/72
--- NOTE | 2020-07-14 19:03 | HPE ---
DATE OF ADMISSION: 07/13/2020 Patient is a 65-year-old female who underwent a robotic assisted laparoscopic incisional hernia repair yesterday morning. Overnight, she has had some abdominal distention. She had some nausea associated with her narcotic and developed progressive abdominal distention later on today and contacted me and I advised her to come into the emergency room where she has been afebrile. Her white count is 6.4, she is not anemic, and x-rays were obtained and although the report suggests that there is a small bowel obstruction, essentially the patient has a small bowel to rectum anastomosis and thus I feel that this is most consistent with an ileus postoperatively compared to a small bowel obstruction. In any case, she continues to be very distended, this is mostly air filled small bowel, stomach as well, and there is small areas of air within the abdominal wall as expected postoperatively at this time. Her incisions and dressing are clean and dry. There is no erythema, there is no drainage, there is no significant ecchymosis or hematoma present. She does not complain of any other issues with her abdominal incision per se. PAST MEDICAL HISTORY: Significant for history of total colectomy for ulcerative colitis with an ileorectal anastomosis, history of oophorectomy, history of eye surgery, history of incisional hernia repair in 2016, history of umbilical hernia repair in 2016, history of open right inguinal hernia repair in 2018, history of arthritis, diabetes mellitus. MEDICATIONS: Include: - colesevelam - insulin - sulfasalazine PHYSICAL EXAMINATION: Reveals a 65-year-old female who looks stated age. HEENT is unremarkable. Neck supple without adenopathy. Lungs are clear to auscultation without crackles, wheezes, or rhonchi. Heart is irregular. Abdomen is distended, tympanitic throughout with mild tenderness throughout but mostly it is secondary to her abdominal distention per se. Her incisions are clean and dry, no erythema, drainage, or discharge is appreciated. Her extremities are warm and well-perfused. IMPRESSION/PLAN: Patient has evidence of an ileus postoperatively. My recommendation at this time is that we keep her nothing by mouth, place a nasogastric (NG) tube given her abdominal distention, IV fluids, and watch her overnight and see how she does for improvement. If she is not having significant clinical improvement, I will repeat her x-rays in the morning and otherwise, at this point, I anticipate we should have some improvement/resolution of this ileus over the next 24-48 hours. MTDD
--- NOTE | 2020-07-14 19:05 | IPN ---
DATE: __07/14/20___ SUBJECTIVE: She states that she is feeling a lot better this morning but still feeling quite distended. She has had a little bit of flatus but no significant bowel movements. No nausea, no vomiting. Her NG tube is just putting out a little bit of fluid but not a significant amount. She has been afebrile. Her vital signs are stable. Her white count came back normal again. Her abdomen is softly distended, tympanitic throughout. Extremities are warm and well perfused. IMPRESSION AND PLAN: The patient has evidence of a postoperative ileus at this time and my recommendation is that we keep her n.p.o., IV fluids, and continue with her close observation. She understands, and at this point I am not seeing a quick resolution to this. It may be a few days given the slow but progressive decline and abdominal distention, but I have asked her to get up and move around a little bit more to see if that does not assist with her resolution of symptoms as well. She understands and will start to mobilize herself at this point. VEDA
[2020-07-14 22:00] VITALS: BP 120/72
[2020-07-15 02:00] VITALS: BP 130/72
[2020-07-15] MEDS: SIMETHICONE 80 MG CHEW TAB PO SCH ×2 (05:53→12:48)
[2020-07-15 06:00] VITALS: BP 120/82
[2020-07-15] MEDS: HumaLOG INSULIN (NovoLOG) PER UNIT SC SCH ×3 (06:00→12:00)
[2020-07-15] MEDS: NS 1,000 ML IV SCH (07:41)
[2020-07-15 07:51] LABS: HEMATOCRIT 39.3 % (36.0-47.0); HEMOGLOBIN 12.8 g/dl (12.0-15.5); MEAN CORPUSCULAR HGB CONC 32.6 g/dl (32.0-36.5); MEAN CORPUSCULAR VOLUME 104.5 fl (80.0-96.0); PLATELET COUNT, AUTOMATED 194 10^3/uL (150-450); RED BLOOD COUNT 3.76 10^6/uL (4.00-5.40); WHITE BLOOD COUNT 6.1 10^3/uL (4.0-10.0)
[2020-07-15] MEDS: ALVIMOPAN 12 MG CAPSULE (ENTEREG) PO SCH (07:59)
[2020-07-15] MEDS: PANTOPRAZOLE 40MG VIAL (C9113 PER 1) IV SCH (07:59)
[2020-07-15 08:14] LABS: BLOOD UREA NITROGEN 10 MG/DL (7-18); CALCIUM LEVEL 8.3 MG/DL (8.8-10.2); CARBON DIOXIDE LEVEL 26 MEQ/L (21-32); CHLORIDE LEVEL 104 MEQ/L (98-107); CREATININE FOR GFR 0.54 MG/DL (0.55-1.30); GLOMERULAR FILTRATION RATE > 60.0 (>45); GLUCOSE, FASTING 62 MG/DL (70-100); POTASSIUM SERUM 3.3 MEQ/L (3.5-5.1); SODIUM LEVEL 138 MEQ/L (136-145)
[2020-07-15] MEDS ORDERED: PREVNAR 13 VACCINE SYRINGE IM ONE (16:00)
[2020-07-15] MEDS ORDERED: FLUBLOK(EGG FREE)(QUAD)INFLUENZA VACC 0.5ML SYRINGE 18YRS & OLDER IM ONE (16:00)
--- NOTE | 2020-08-30 07:28 | DS ---
DATE OF ADMISSION: 07/13/2020 DATE OF DISCHARGE: 07/15/2020 PRINCIPAL DIAGNOSIS: Ileus status post incisional hernia repair. ASSOCIATED DIAGNOSES: * History of total colectomy for ulcerative colitis with ileorectal anastomosis. * History of oophorectomy. * History of eye surgery. * History of incisional hernia repair in 2016. * History of umbilical hernia repair in 2016. * History of open right inguinal hernia repair in 2018. * History of arthritis. * History of diabetes mellitus. BRIEF HISTORY OF PRESENT ILLNESS: The patient is a 65-year-old female who underwent a laparoscopic assisted incisional hernia repair 24 hours prior to admission. Overnight she developed progressive abdominal distention and had some narcotic associated nausea and with that abdominal distention and nausea she came to the Emergency Room and had evidence of a possible partial bowel obstruction versus ileus and essentially was admitted for inability to keep oral intake down. HOSPITAL COURSE SUMMARY: The patient was admitted on 07/13, over the next 24 hours had some improvement of her symptoms. She was started on a clear liquid diet, progressed her diet and was discharged home on the following day with her continuing on her usual medications which include: * Humira. * Budesonide. * WelChol. * Multivitamin. * Sulfasalazine. * Tramadol. * Tylenol. FOLLOW UP: She was to follow up in my office in 1 week for a re-evaluation sooner if she had any increasing pain, discomfort or GI complaints. VEDA
== END 2020-07-15 17:15 | disposition home or self-care (01) | DRG 252 ==
LOC: M ED 18:55 → M ED INP 22:33 → ENRESERV 23:15 → M MSPAV 07-14 01:05
PROVIDERS: ADMIT Surgery; ATTEND Surgery
DX: K91.89 Other postprocedural complications and disorders of digestive system (principal); K56.7 Ileus, unspecified; E11.9 Type 2 diabetes mellitus without complications; Z90.49 Acquired absence of other specified parts of digestive tract; Z79.4 Long term (current) use of insulin; Z79.899 Other long term (current) drug therapy

== ENCOUNTER → 2020-08-09 | Outpatient (CLI) | payer BC ==
[~2020-08-09] MED LIST changes: +ACET-907 PO; +BUDE3CAP; +BUDE3CAP PO; +COLE625TAB PO; +HUMI40KI SC; +HYDR-4571; +SULF1TAB30 PO; +TRAM50TA2; +TRAM50TA2 PO; +VITACHTA PO
--- NOTE | 2020-08-12 09:27 | REP ---
DIGITAL DIAGNOSTIC RIGHT BREAST MAMMOGRAPHY WITH CAD AND TARGETED RIGHT BREAST SONOGRAPHY: HISTORY: Screening mammography 07/05/20 was BI-RADS category 0, incomplete because of a nodular neodensity in the retroareolar region of the right breast inferiorly. Diagnostic imaging was recommended. Comparison is also made with prior mammography from 07/17/12. MAMMOGRAPHIC FINDINGS: Magnified focal spot compression CC, true ML, and MLO views of the right breast were obtained. These confirm the presence of an oval shaped well circumscribed nodular density in the 6 oclock position anterior third right breast retroareolar region. Scattered fibroglandular elements are seen. No other significant mammographic finding. SONOGRAPHIC FINDINGS: Focused right breast sonographic is preformed in the retroareolar region. Two targets are identified. At the 7 oclock position, there is a 5 x 5 x 2mm hypoechoic area with enhanced through transmission consistent with a complex cyst. At 6 oclock there is a 7 x 7 x 3mm oval shaped hypoechoic area with some wall thickening also most consistent with a complex cyst. Neither of these meets criteria of a simple cyst. The larger is felt to account for the mammographic opacity. No other significant sonographic finding. IMPRESSION: BI-RADS Category 4, suspicious right breast imaging. Complex hypoechoic lesion seen at 6 and 7 oclock in the retroareolar region of the right breast by ultrasound. The larger of the these corresponds with the mammographic opacity. They do not meet the criteria of a simple cyst. Ultrasound guided needle biopsy is recommended with marker clip placement and post clip mammography. BIRADS 4: BI-RADS/ACR category 4 mammogram. Suspicious abnormality - biopsy should be considered. Patient letter is M4. This mammogram was interpreted with the aide of a FDA approved computer assisted detection device. [facility]
== END ==
LOC: M WHC 09:47
PROVIDERS: ATTEND Internal Medicine
DX: R92.2 Inconclusive mammogram (principal)

== ENCOUNTER → 2021-02-07 | Outpatient (CLI) | payer BC ==
--- NOTE | 2021-02-08 02:08 | REP ---
INDICATION: POUCHITIS COMPARISON: None. TECHNIQUE: Supine view of the abdomen and pelvis. FINDINGS: Postsurgical changes are appreciated and the bowel gas pattern is nonspecific and without obstruction or perforation. No organomegaly. No abnormal calcifications. Skeletal structures intact. IMPRESSION: Postsurgical changes. Nonspecific bowel gas pattern. <Electronically signed by Javon Angel > 02/08/21 [id number]
== END ==
LOC: M RAD 15:18
PROVIDERS: ATTEND Internal Medicine Gastroenterology
DX: K91.850 Pouchitis (principal); K51.913 Ulcerative colitis, unspecified with fistula; M13.0 Polyarthritis, unspecified

== ENCOUNTER → 2021-02-10 | Outpatient (CLI) | payer BC ==
[~2021-02-10] MED LIST changes: +GASTROGRAFIN SOLUTION 30ML (Q9963) As Ordered ONE; +ISOVUE-370 76% 100ML VIAL As Ordered ONE
--- NOTE | 2021-02-10 16:33 | REP ---
INDICATION: ABD PAIN. COMPARISON: Multiple the latest 07/13/2020 TECHNIQUE: Standard contrast-enhanced helical technique after the intravenous administration of 100 cc Isovue 370 and oral bowel preparatory contrast administration. FINDINGS: The lung bases are unchanged. Scattered fibrotic and/or subsegmental atelectatic changes are again noted status quo. The liver, gallbladder, spleen, pancreas, adrenal glands, and kidneys are unchanged and again seen to be within normal limits. Benign splenic calcifications are again noted. The abdominal aorta and para-aortic regions are unchanged and again seen to be within normal limits. The bowel loops and the mesenteries are within normal limits. There is no evidence of intestinal obstruction or abnormal bowel wall thickening. There is a small to moderate amount of free fluid in the pelvis. There is no evidence of free air. Postoperative changes are again seen in the pelvis from previous bowel anastomosis. There is no evidence of a mass or adenopathy. Bone window technique throughout the examination shows no significant change in the appearance of the imaged osseous structures. IMPRESSION: There is a small to moderate amount of free fluid in the pelvis. The etiology is uncertain. Other findings as described above. <Electronically signed by Pete Hill > 02/10/21 [id number]
== END ==
LOC: M RAD 14:23
PROVIDERS: ATTEND Internal Medicine
DX: R10.9 Unspecified abdominal pain (principal)
CPT/HCPCS: 74177; Q9963; Q9967

== ENCOUNTER → 2021-03-21 | Outpatient (CLI) | payer BC ==
[~2021-03-21] MED LIST changes: +CITA10TA6 PO; -GASTROGRAFIN SOLUTION 30ML (Q9963) As Ordered ONE; +HUMI40KI2 PO; -ISOVUE-370 76% 100ML VIAL As Ordered ONE
--- NOTE | 2021-03-21 20:50 | ECGEPIP ---
[facility] Test Date: 2021-03-21 Pat Name: ARLENE MEDINA Department: Room: - Gender: Female [employer]: [place] : 1955 Requested By: MARIVEL Dye Order Number: [id number] Reading MD: Robert Chen Measurements Intervals [place] Rate: 54 P: 70 NM: 202 QRS: 63 QRSD: 82 T: 59 QT: 448 QTc: 424 Interpretive Statements Sinus bradycardia Left atrial enlargement Septal infarct , age undetermined No significant change when compared to prior tracing of 07/05/2020 Electronically Signed on 03-21-2021 20:50:22 EDT by Robert Chen
== END ==
LOC: M EKG 10:20
PROVIDERS: ATTEND Anesthesiology
DX: I77.89 Other specified disorders of arteries and arterioles (principal)

== ENCOUNTER → 2021-03-23 | Outpatient (CLI) | payer BC | LOC: M LABSMTC 10:15 | PROVIDERS: ATTEND Anesthesiology | DX: Z01.812 Encounter for preprocedural laboratory examination (principal); Z20.822 Contact with and (suspected) exposure to COVID-19 ==

== ENCOUNTER 2021-03-28 09:07 | Day surgery (SDC) | payer BC ==
[~2021-03-28] VITALS: Ht 165.1 cm; Wt 63.5 kg
[~2021-03-28 09:07] MED LIST changes: +LR 1,000 ML IV ONE; +ceFAZolin SOD 1 GM in D5W MINI-BAG PLUS 50 ML IV ONE
[2021-03-28] MEDS ORDERED: MIDAZOLAM INJ 2MG/2ML VIAL (J2250 PER 1MG) As Ordered ONE (10:06)
[2021-03-28] MEDS ORDERED: propofoL 200 MG/20 ML VIAL As Ordered ONE (10:06)
[2021-03-28] MEDS ORDERED: ONDANSETRON 4MG/2ML VIAL As Ordered ONE (10:06)
[2021-03-28] MEDS ORDERED: LIDOCAINE 2% 100MG/5ML SDV (FOR ANES.) As Ordered ONE (10:06)
[2021-03-28] MEDS ORDERED: dexameTHASONE 4 MG/ML 1ML VIAL (J1100 PER 1MG) As Ordered ONE (10:06)
[2021-03-28] MEDS ORDERED: ROCURONIUM BROMIDE 50 MG/5 ML VIAL As Ordered ONE (10:06)
[2021-03-28] MEDS ORDERED: fentaNYL 100 MCG/2 ML INJECTION (J3010) As Ordered ONE (10:06)
[2021-03-28] MEDS ORDERED: BUPIVACAINE/EPIN 0.25% 30 ML VIAL As Ordered ONE (10:37)
[2021-03-28] MEDS ORDERED: BUPIVACAINE HCL 0.25% 30ML VIAL As Ordered ONE (10:37)
[2021-03-28] MEDS ORDERED: BUPIVACAINE LIPOSOME/PF 1.3% 20ML VIAL (13.3MG/ML)(EXPAREL)(C9290 PER1MG) As Ordered ONE (10:37)
[2021-03-28] MEDS ORDERED: KETOROLAC 60MG 2ML VIAL As Ordered ONE (11:16)
[2021-03-28] MEDS ORDERED: SUGAMMADEX SODIUM 500 MG/5 ML VIAL (BRIDION) As Ordered ONE (11:16)
[2021-03-28] MEDS ORDERED: ACETAMINOPHEN 1000MG 100ML IV BTL (OFIRMEV) (J0131 PER 10MG) As Ordered ONE (11:16)
[2021-03-28] MEDS ORDERED: ePHEDrine SULFATE 25 MG/5 ML(5MG/ML) SYRINGE As Ordered ONE (11:31)
[2021-03-28] MEDS ORDERED: PHENYLephrine 500MCG 5ML (100MCG/ML) SYRINGE As Ordered ONE (11:31)
[2021-03-28] MEDS ORDERED: METOCLOPRAMIDE INJ 10MG/2ML VIAL (J2765 PER 1) IV PRN (12:05)
[2021-03-28] MEDS ORDERED: HYDROMORPHONE HCL 0.5 MG/ 0.5 ML SYRINGE (J1170 PER 1) IV PRN (12:05)
[2021-03-28] MEDS ORDERED: fentaNYL 100 MCG/2 ML INJECTION (J3010) IV PRN (12:05)
[2021-03-28] MEDS ORDERED: oxyCODONE 5MG TAB PO PRN (12:05)
[2021-03-28] MEDS ORDERED: ONDANSETRON 4MG/2ML VIAL IV PRN (12:05)
[2021-03-28] MEDS ORDERED: LR 1,000 ML IV SCH (12:05)
[2021-03-28] MEDS ORDERED: NS 1,000 ML IV SCH (12:10)
[2021-03-28 13:50] VITALS: BP 160/77
--- NOTE | 2021-04-05 10:39 | RO ---
OPERATIVE NOTE DATE OF OPERATION: 03/28/2021 PREOPERATIVE DIAGNOSIS: Incisional hernia. POSTOPERATIVE DIAGNOSIS: Incisional hernia. PROCEDURE: Incisional hernia repair. SURGEON: Roly Barrera Jr, MD. BLAST FURNACE CHECKER: ANESTHESIA: General endotracheal anesthesia. EBL: Minimal. FLUIDS: Crystalloid. BRIEF PROCEDURE SUMMARY: Patient was brought to the operating room. Was prepped and draped in the usual sterile fashion. Just at the upper portion of her incisional hernia there was some bulging appreciated and some significant tenderness at the previous ostomy repair site. However, on her CAT scan that we performed, we indeed see a fascial defect through the muscle in this area. However, it appears that the mesh is actually covering this from an intraperitoneal standpoint. In any case, a longitudinal incision was made over the top of the hernia site. A combination of electrocautery and blunt dissection was used to dissect down to the abdominal wall/fascia down to the rectus muscle where the fascial defect could be appreciated. The fascial defect was not very large. It was probably 8-9 mm in size itself, and I was able to close this with two [id number] 0 Ethibonds. However, in this area there still was some extra fatty tissue present, and given her previous hernia repair in this area and recurrence, I had concerns that additional hernias may be present. Thus, I denuded the fascia circumferentially for a couple inches to see if there were any additional hernias in this area, and indeed I did not find any additional hernias. Thus, the area was copiously irrigated. 3-0 Vicryl was used to approximate the dermis, and 4-0 Vicryl was used to approximate the skin. Steri-Strips and a dry sterile dressing were applied. The patient was awakened from her anesthesia and brought to the recovery room awake, alert, and hemodynamically stable. Sponge and needle counts correct x2.
== END 2021-03-28 14:00 | disposition home or self-care (01) ==
LOC: M SDC 09:07
PROVIDERS: ATTEND Surgery
DX: K43.2 Incisional hernia without obstruction or gangrene (principal); K44.9 Diaphragmatic hernia without obstruction or gangrene; K51.90 Ulcerative colitis, unspecified, without complications; Z90.49 Acquired absence of other specified parts of digestive tract; K21.9 Gastro-esophageal reflux disease without esophagitis; F41.9 Anxiety disorder, unspecified; R06.83 Snoring; Z87.891 Personal history of nicotine dependence; Z79.899 Other long term (current) drug therapy; Z79.2 Long term (current) use of antibiotics
CPT/HCPCS: 49565; C9290; J0131; J0690; J1100; J1885; J2250; J2370; J2405; J3010

== ENCOUNTER → 2021-06-08 | Outpatient (CLI) | payer BC ==
[~2021-06-08] MED LIST changes: -LR 1,000 ML IV ONE; -ceFAZolin SOD 1 GM in D5W MINI-BAG PLUS 50 ML IV ONE
[2021-06-08 11:22] LABS: BASO % 0.9 % (0.0-1.0); EOS # 0.4 10^3/uL (0.0-0.5); EOS % 9.8 % (0.0-3.0); HEMATOCRIT 38.6 % (36.0-47.0); HEMOGLOBIN 12.4 g/dl (12.0-15.5); LYMPH # 1.6 10^3/uL (1.5-5.0); LYMPH % 37.9 % (24.0-44.0); MEAN CORPUSCULAR HEMOGLOBIN 33.6 pg (27.0-33.0); MEAN CORPUSCULAR HGB CONC 32.1 g/dl (32.0-36.5); MEAN CORPUSCULAR VOLUME 104.6 fl (80.0-96.0); MONO # 0.5 10^3/uL (0.0-0.8); MONO % 11.4 % (2.0-8.0); NEUTROPHILS # 1.7 10^3/uL (1.5-8.5); NEUTROPHILS % 39.8 % (36.0-66.0); PLATELET COUNT, AUTOMATED 212 10^3/uL (150-450); RED BLOOD COUNT 3.69 10^6/uL (4.00-5.40); WHITE BLOOD COUNT 4.3 10^3/uL (4.0-10.0)
[2021-06-08 12:07] LABS: ALBUMIN 4.2 GM/DL (3.2-5.2); ALT/SGPT 19 U/L (12-78); BILIRUBIN,TOTAL 0.5 MG/DL (0.2-1.0); BLOOD UREA NITROGEN 12 MG/DL (7-18); CALCIUM LEVEL 9.3 MG/DL (8.8-10.2); CARBON DIOXIDE LEVEL 29 MEQ/L (21-32); CHLORIDE LEVEL 107 MEQ/L (98-107); CREATININE FOR GFR 0.87 MG/DL (0.55-1.30); GLOMERULAR FILTRATION RATE > 60.0 (>45); GLUCOSE, FASTING 90 MG/DL (70-100); POTASSIUM SERUM 5.1 MEQ/L (3.5-5.1); SODIUM LEVEL 140 MEQ/L (136-145); TOTAL PROTEIN 7.4 GM/DL (6.4-8.2)
== END ==
LOC: M LAB 09:41
PROVIDERS: ATTEND Physician Assistant
DX: Z79.899 Other long term (current) drug therapy (principal)

== ENCOUNTER → 2023-03-21 | Outpatient (REF) | payer BC ==
[~2023-03-21] MED LIST changes: +COLE625T17 PO; -COLE625TAB PO; +OMEP-173 PO; -OMEP-218 PO
== END ==
LOC: M LAB REF 16:43
PROVIDERS: ATTEND Internal Medicine
DX: K51.90 Ulcerative colitis, unspecified, without complications (principal)

== ENCOUNTER → 2023-03-21 | Outpatient (REF) | payer BC ==
[2023-03-21 13:14] LABS: CLOSTRIDIUM DIFFICILE PCR NEGATIVE (NEGATIVE)
== END ==
LOC: M LAB REF 10:10
PROVIDERS: ATTEND Internal Medicine Gastroenterology
DX: R19.7 Diarrhea, unspecified (principal); K91.850 Pouchitis; K51.913 Ulcerative colitis, unspecified with fistula; M25.50 Pain in unspecified joint

== ENCOUNTER 2024-04-20 08:52 | Day surgery (SDC) | payer BC ==
[~2024-04-20] VITALS: Ht 165.1 cm; Wt 72.6 kg
[~2024-04-20 08:52] MED LIST changes: +ALEN70TA82 PO; +ATOR40TA75 PO; +BAYE81TA10 PO; +CIPR-250 PO; +CLOP75TA2 PO; +FOLI1TAB11 PO; +LR 1,000 ML IV SCH; +METH2.5T48 PO; +MONT10TA97 PO; +OMEP1CAP73 PO
[2024-04-20] MEDS: TETRACAINE 0.5% OPHTH SOLN 4ML OD SCH (09:22)
[2024-04-20] MEDS: ATROPINE SULFATE 1% OPHTH SOLN 2ML BTL OD SCH (09:22)
[2024-04-20] MEDS: PHENYLEPHRINE 2.5% OPHTH SOL 2ML OD SCH (09:22)
[2024-04-20] MEDS: FLURBIPROFEN 0.03% OPHTH SOLN 2.5 ML OD SCH (09:22)
[2024-04-20] MEDS ORDERED: MIDAZOLAM INJ 2MG/2ML VIAL As Ordered ONE (11:10)
[2024-04-20] MEDS: LIDOCAINE 1% SDV 5ML VIAL As Ordered ONE (11:16)
[2024-04-20] MEDS: CEFUROXIME 1MG/0.1ML INTRACAMERAL INJ As Ordered ONE (11:16)
[2024-04-20 11:41] VITALS: BP 142/70; TEMP 97; O2SAT 94
== END 2024-04-20 11:51 | disposition home or self-care (01) ==
LOC: M SDC 08:52
PROVIDERS: ATTEND Ophthalmology
DX: H25.11 Age-related nuclear cataract, right eye (principal); K51.90 Ulcerative colitis, unspecified, without complications; K21.9 Gastro-esophageal reflux disease without esophagitis; Z79.899 Other long term (current) drug therapy; Z79.82 Long term (current) use of aspirin; Z87.891 Personal history of nicotine dependence; Z98.42 Cataract extraction status, left eye; Z87.19 Personal history of other diseases of the digestive system
CPT/HCPCS: 66984; J0697; J2250; V2632

== ENCOUNTER → 2025-03-04 | Outpatient (REF) | payer BC ==
[~2025-03-04] MED LIST changes: -LR 1,000 ML IV SCH
== END ==
LOC: M LAB REF 12:29
PROVIDERS: ATTEND Internal Medicine Gastroenterology
DX: K44.9 Diaphragmatic hernia without obstruction or gangrene (principal); R10.84 Generalized abdominal pain; K62.5 Hemorrhage of anus and rectum